=== PATIENT | female | born 1965 | race Two or more races ===

== ENCOUNTER 2020-05-02 21:16 | Inpatient (IN) | payer BC ==
[~2020-05-02] VITALS: Ht 167.6 cm; Wt 85.3 kg
--- NOTE | 2020-05-02 21:30 | NUR ---
PT BIBFAMILY C/O SOB AND COUGH X 2 MONTHS. PT SATTING 90% ON RA. PT PLACED ON 3 LPM VIA N/C. PT HAS AN APPT W/ [employer] NEXT WEEK. PT AAOX4,NO ACUTE DISTRESS NOTED. 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
--- NOTE | 2020-05-02 21:51 | NUR ---
BLOOD COLLECTED AND SENT TO LAB
[2020-05-02 22:19] LABS: BASOPHILS % (AUTO) 0.4 % (0.0-2.0); EOSINOPHILS % (AUTO) 6.4 % (0.0-6.0); HEMATOCRIT 45 % (33-45); HEMOGLOBIN 15.4 g/dL (11.5-14.8); LYMPHOCYTES # (AUTO) 4.7 /CMM (0.8-4.8); LYMPHOCYTES % (AUTO) 44.2 % (20.0-44.0); MEAN CORPUSCULAR HGB CONC 34 g/dl (31.0-36.0); MEAN CORPUSCULAR VOLUME 89 fL (82-100); MONOCYTES # (AUTO) 0.8 /CMM (0.1-1.30); MONOCYTES % (AUTO) 7.5 % (2.0-12.0); NEUTROPHILS # (AUTO) 4.4 /CMM (1.8-8.9); NEUTROPHILS % (AUTO) 41.5 % (43.0-81.0); PLATELET COUNT (AUTO) 288 /CMM (150-450); RED BLOOD CELL COUNT(AUTO) 5.03 MIL/uL (4.0-5.2); WHITE BLOOD COUNT (AUTO) 10.6 K/uL (4.3-11.0)
[2020-05-02 22:29] LABS: CARBON DIOXIDE 27 mmol/L (21-32); CHLORIDE 102 mmol/L (98-107); CREATININE 0.7 mg/dL (0.6-1.3); GLUCOSE 136 mg/dL (74-106); POTASSIUM 3.7 mmol/L (3.5-5.1); SODIUM SERUM 140 mmol/L (136-145); UREA NITROGEN, BLOOD 22 mg/dL (7-18)
[2020-05-02] MEDS ORDERED: methylPREDNISolone SOD SUCC 125 MG/2ML VIAL ONE (22:29)
[2020-05-02] MEDS ORDERED: Magnesium 1GM/D5W 100ML PREMIX 200 ML IV ONE ×2 (22:29→22:30)
[2020-05-02] MEDS ORDERED: TERBUTALINE SULFATE 1 MG/ML VIAL ONE (22:29)
[2020-05-02] MEDS ORDERED: IPRATROPIUM NEB FS 0.5 MG/2.5 ML AMPUL.NEB NEB ONE (22:30)
[2020-05-02] MEDS ORDERED: methylPREDNISolone SOD SUCC 125 MG/2ML VIAL IV ONE (22:30)
[2020-05-02] MEDS ORDERED: ALBUTEROL FS 2.5 MG/3 ML VIAL.NEB CONTNEB ONE (22:30)
[2020-05-02] MEDS ORDERED: TERBUTALINE SULFATE 1 MG/ML VIAL SQ ONE (22:30)
[2020-05-02] MEDS ORDERED: IPRATROPIUM NEB FS 0.5 MG/2.5 ML AMPUL.NEB ONE ×2 (22:34→23:42)
[2020-05-02] MEDS ORDERED: ALBUTEROL FS 2.5 MG/3 ML VIAL.NEB ONE ×2 (22:34→23:42)
[2020-05-02 22:46] LABS: ALANINE AMINOTRANSFERASE 37 U/L (12-78); ALBUMIN 4.7 g/dL (3.4-5.0); ALKALINE PHOSPHATASE 62 U/L (46-116); ASPARTATE AMINOTRANSFERASE 19 U/L (15-37); B-TYPE NATRIURETIC PEPTIDE 53 PG/ML (0-125); BILIRUBIN,DIRECT 0.1 mg/dL (0.0-0.2); BILIRUBIN,TOTAL 0.3 mg/dL (0.2-1.0); TOTAL PROTEIN, SERUM 8.7 g/dL (6.4-8.2)
[2020-05-02 22:48] LABS: ABG BASE EXCESS 0.4 mmol/L; ABG PCO2 52.1 mmHg (35.0-45.0); ABG PH 7.335 (7.350-7.450); AaDO2 74.2 mmHg; COHb 0.2 % (0.5-1.5); MetHb 0.3 % (0.0-1.5); O2Hb 95.5 % (94.0-97.0); SITE, ABG Left Brachial; VENT MODE, BG 3L NC
[2020-05-03] MEDS ORDERED: ALBUTEROL FS 2.5 MG/3 ML VIAL.NEB CONTNEB ONE
[2020-05-03] MEDS ORDERED: MAGNESIUM HYDROXIDE 30 ML UDC PO PRN
[2020-05-03] MEDS ORDERED: MAG HYDROX/AL HYDROX/SIMETH 30 ML UDC PO PRN
[2020-05-03] MEDS ORDERED: IPRATROPIUM NEB FS 0.5 MG/2.5 ML AMPUL.NEB NEB ONE
[2020-05-03] MEDS ORDERED: Z GUARD REMEDY 2 OZ OINT TP PRN
[2020-05-03] MEDS ORDERED: HYDROCODONE/APAP 5/325MG TABLET PO PRN
[2020-05-03] MEDS ORDERED: ZOLPIDEM TARTRATE 5 MG TABLET PO PRN
[2020-05-03] MEDS ORDERED: AZITHROMYCIN 500 MG in IV D5W 250 ML IV ONE ×2
[2020-05-03] MEDS ORDERED: ONDANSETRON HCL/PF 4 MG/2 ML VIAL IVP PRN
--- NOTE | 2020-05-03 00:12 | NUR ---
REPORT GIVEN TO LILIANE BLANCA FOR PREMA
--- NOTE | 2020-05-03 00:37 | NUR ---
PT TRANSFERRED TO ROOM PER [employer]S PROTOCOL
[2020-05-03 00:40] VITALS: BP 122/61
--- NOTE | 2020-05-03 00:40 | NUR ---
MS RN NOTES PATIENT ARRIVED ON FLOOR AT 0040. PATIENT IS ALERT AND ORIENTED X 4. BREATHING EVEN AND UNLABORED ON 4L NC. SHOWS NO SIGNS OF ACUTE RESPIRATORY DISTRESS, NO ACUTE PAIN. IV ON RAC 18G, ITS CLEAN DRY AND INTACT. FLUSHING WELL. BELONGINGS CHECKLIST COMPLETED. SKIN ASSESSMENT COMPLETED. ORIENTED TO ROOM AND STAFF. SAFETY PRECAUTIONS IN PLACE. BED IN LOWEST POSITION, LOCKED, AND CALL LIGHT KEPT WITHIN REACH. WILL CONTINUE TO MONITOR.
[2020-05-03] MEDS ORDERED: OLME1TAB40 PO (02:50)
--- NOTE | 2020-05-03 06:46 | NUR ---
MS RN NOTES PATIENT IS IN BED, ASLEEP, ALERT AND ORIENTED X 4. BREATHING EVEN AND UNLABORED ON 4L NC. SHOWS NO SIGNS OF ACUTE RESPIRATORY DISTRESS, NO ACUTE PAIN. IV ON RAC 18G, ITS CLEAN DRY AND INTACT. FLUSHING WELL.ALL DUE MEDICATIONS GIVEN. SAFETY PRECAUTIONS IN PLACE. BED IN LOWEST POSITION, LOCKED, AND CALL LIGHT KEPT WITHIN REACH. WILL ENDORSE TO ONCOMING NURSE.
[2020-05-03 07:31] LABS: BASOPHILS % (AUTO) 0.2 % (0.0-2.0); EOSINOPHILS % (AUTO) 0.2 % (0.0-6.0); HEMATOCRIT 39 % (33-45); HEMOGLOBIN 13.2 g/dL (11.5-14.8); LYMPHOCYTES # (AUTO) 0.8 /CMM (0.8-4.8); MEAN CORPUSCULAR HGB CONC 34 g/dl (31.0-36.0); MEAN CORPUSCULAR VOLUME 88 fL (82-100); MONOCYTES # (AUTO) 0.1 /CMM (0.1-1.30); MONOCYTES % (AUTO) 1.7 % (2.0-12.0); NEUTROPHILS # (AUTO) 7.6 /CMM (1.8-8.9); NEUTROPHILS % (AUTO) 88.9 % (43.0-81.0); PLATELET COUNT (AUTO) 245 /CMM (150-450); RED BLOOD CELL COUNT(AUTO) 4.45 MIL/uL (4.0-5.2); WHITE BLOOD COUNT (AUTO) 8.6 K/uL (4.3-11.0)
[2020-05-03 07:41] LABS: CALCIUM, SERUM 9.4 mg/dL (8.5-10.1); CREATININE 1.3 mg/dL (0.6-1.3); MAGNESIUM 2.7 mg/dL (1.8-2.4); PHOSPHORUS 1.9 mg/dL (2.5-4.9); POTASSIUM 3.5 mmol/L (3.5-5.1)
[2020-05-03] MEDS: ALBUTEROL FS 2.5 MG/3 ML VIAL.NEB NEB SCH ×5 (07:52→23:48)
[2020-05-03] MEDS: IPRATROPIUM NEB FS 0.5 MG/2.5 ML AMPUL.NEB NEB SCH ×5 (07:52→23:48)
--- NOTE | 2020-05-03 08:20 | NUR ---
MS RN NOTES RECEIVED PATIENT IN BED , HEAD OF BED ELEVATED , ALERT ORIENTED X 4. NO ACUTE DISTRESS NOTED. BREATHING UNLABORED. NO SOB NOTED. IV ACCESS PATENT AND INTACT, NO REDNESS NO SWELLING , NO BLEEDING NOTED. SAFETY MEASURES IN PLACE. CALL LIGHT WITHIN REACH. WILL CONTINUE TO MONITOR ACCORDINGLY.
--- NOTE | 2020-05-03 08:22 | NUR ---
MS RN NOTES PATIENT IS IN BED, AWAKE ALERT AND ORIENTED X 4. BREATHING EVEN AND UNLABORED ON 3L NC. SHOWS NO SIGNS OF ACUTE RESPIRATORY DISTRESS, NO ACUTE PAIN. IV ON RAC 18G, ITS CLEAN DRY AND INTACT. SAFETY PRECAUTIONS IN PLACE WITH BED IN LOWEST POSITION, LOCKED, AND CALL LIGHT KEPT WITHIN REACH. ENDORSE PLAN OF CARE TO MORNING SHIFT RN.
[2020-05-03] MEDS ORDERED: ICOS1CAP PO (08:40)
[2020-05-03] MEDS ORDERED: CHOL100040 PO (08:40)
[2020-05-03] MEDS ORDERED: methylPREDNISolone SOD SUCC 40 MG/ML VIAL IV SCH (09:00)
--- NOTE | 2020-05-03 10:00 | NUR ---
MS RN NOTES NOTIFIED DR ADRYAN RAMOS REGARDING MEDICATION RECONCILIATION NEEDS TO BE DONE.
[2020-05-03] MEDS ORDERED: K PHOS NEUTRAL 250 MG TABLET PO ONE (11:30)
[2020-05-03 16:18] VITALS: BP 105/55
[2020-05-03] MEDS: ACETAMINOPHEN 325 MG TABLET PO PRN (17:15)
--- NOTE | 2020-05-03 19:00 | NUR ---
MS RN NOTES PATIENT IN BED , HEAD OF BED ELEVATED , ALERT ORIENTED X 4. NO ACUTE DISTRESS NOTED. BREATHING UNLABORED. NO SOB NOTED. IV ACCESS PATENT AND INTACT, NO REDNESS NO SWELLING , NO BLEEDING NOTED. NEEDS ATTENDED AND ANTICIPATED. SAFETY MEASURES IN PLACE. CALL LIGHT WITHIN REACH. WILL ENDORSE TO NIGHT NURSE FOR CONTINUITY OF CARE.
--- NOTE | 2020-05-03 19:30 | NUR ---
MS/RN OPENING NOTES RECEIVED PATIENT IN BED , HEAD OF BED ELEVATED , ALERT ORIENTED X 4. NO ACUTE DISTRESS NOTED. BREATHING UNLABORED, NO SIGNS OF SOB OR RESPIRTAORY DISTRESS NOTED. IV ACCESS PATENT AND INTACT, NO REDNESS NO SWELLING SL LOCK. SAFETY MEASURES ARE IN PLACE, BED IS LOCKED AND PLACED IN THE LOW POSITION, SIDE RAILS UP X 2, CALL LIGHT WITHIN REACH. WILL MONITOR THROUGH OUT SHIFT.
[2020-05-03 20:00] VITALS: BP 104/57
--- NOTE | 2020-05-03 21:45 | NUR ---
MS/RN NOTES GAVE REPORT TO LILIANE LERMA FOR PREMA. PATIENT IS STABLE IN NO DISTRESS.
[2020-05-03 21:58] LABS: BILIRUBIN,URINE NEGATIVE (NEGATIVE); BLOOD, URINE NEGATIVE Ery/uL (NEGATIVE); COLOR,URINE YELLOW (YELLOW); LEUKOCYTE ESTERASE ,URINE NEGATIVE (NEGATIVE); NITRITE, URINE NEGATIVE (NEGATIVE); PROTEIN,URINE NEGATIVE (NEGATIVE); UGLUCOSE NEGATIVE (NEGATIVE); UROBILINOGEN,URINE 0.2 EU/dL (0.2)
[2020-05-03 22:02] LABS: EOSINOPHIL,URINE None Seen
--- NOTE | 2020-05-03 22:10 | NUR ---
MS RN NOTE PATIENT IS ASLEEP AT THIS TIME. NO SOB, NO ACUTE DISTRESS NOTED. A & O X 4, ABLE TO MAKE NEEDS KNOWN. WILL CONTINUE TO MONITOR FOR PREMA.
[2020-05-03 22:13] LABS: CREATININE, URINE 65.7 MG/DL (30.0-125.0); URINE TOTAL PROTEIN 3.1 mg/dL (0-11.9)
[2020-05-04] MEDS: ALBUTEROL FS 2.5 MG/3 ML VIAL.NEB NEB SCH ×3 (04:18→11:12)
[2020-05-04] MEDS: IPRATROPIUM NEB FS 0.5 MG/2.5 ML AMPUL.NEB NEB SCH ×3 (04:18→11:12)
[2020-05-04] MEDS: ACETAMINOPHEN 325 MG TABLET PO PRN (05:07)
--- NOTE | 2020-05-04 05:08 | NUR ---
MS RN NOTE: TYLENOL GIVEN PATIENT C/O HEADACHE & REQUESTED TO TAKE TYLENOL. PRN TYLENOL 650 MG PO ADMINISTERED. WILL CONTINUE TO MONITOR.
--- NOTE | 2020-05-04 06:56 | NUR ---
MS/RN CLOSING NOTES PATIENT SLEPT WELL AT NIGHT, HEAD OF BED ELEVATED, ALERT ORIENTED X 4. NO ACUTE DISTRESS NOTED. BREATHING UNLABORED, NO SIGNS OF SOB OR RESPIRATORY DISTRESS NOTED. IV ACCESS PATENT AND INTACT, NO REDNESS NO SWELLING SALINE LOCK. BREATHING TX WAS ADMINISTERED BY RT ORDERED BY MD. ON O2 @ 4 LPM VIA NC. SAFETY MEASURES ARE IN PLACE, BED IS LOCKED AND PLACED IN THE LOW POSITION, SIDE RAILS UP X 2, CALL LIGHT WITHIN REACH. WILL ENDORSE TO AM RN FOR PREMA.
[2020-05-04 08:00] VITALS: BP 118/70
[2020-05-04] MEDS ORDERED: methylPREDNISolone SOD SUCC 125 MG/2ML VIAL IV SCH (09:00)
[2020-05-04] MEDS ORDERED: AZITHROMYCIN 250 MG TABLET PO SCH (09:00)
[2020-05-04] MEDS ORDERED: PRED20TA PO (11:34)
[2020-05-04] MEDS ORDERED: FLUT1DIS INH (11:35)
[2020-05-04 11:53] LABS: BASOPHILS # (AUTO) 0.1 /CMM (0.0-0.2); BASOPHILS % (AUTO) 0.5 % (0.0-2.0); HEMATOCRIT 38 % (33-45); HEMOGLOBIN 12.7 g/dL (11.5-14.8); LYMPHOCYTES # (AUTO) 1.8 /CMM (0.8-4.8); LYMPHOCYTES % (AUTO) 12.7 % (20.0-44.0); MEAN CORPUSCULAR HGB CONC 33 g/dl (31.0-36.0); MEAN CORPUSCULAR VOLUME 89 fL (82-100); MONOCYTES # (AUTO) 0.8 /CMM (0.1-1.30); MONOCYTES % (AUTO) 5.7 % (2.0-12.0); NEUTROPHILS # (AUTO) 11.7 /CMM (1.8-8.9); NEUTROPHILS % (AUTO) 81.1 % (43.0-81.0); PLATELET COUNT (AUTO) 250 /CMM (150-450); WHITE BLOOD COUNT (AUTO) 14.5 K/uL (4.3-11.0)
[2020-05-04] MEDS ORDERED: ASPIRIN 81 MG TAB.CHEW PO SCH (12:00)
[2020-05-04] MEDS ORDERED: ATORVASTATIN 10 MG TABLET PO SCH (12:00)
[2020-05-04 12:07] LABS: ALBUMIN 3.8 g/dL (3.4-5.0); BILIRUBIN,TOTAL 0.2 mg/dL (0.2-1.0); CALCIUM, SERUM 9.1 mg/dL (8.5-10.1); CREATININE 0.9 mg/dL (0.6-1.3); MAGNESIUM 2.5 mg/dL (1.8-2.4); POTASSIUM 3.9 mmol/L (3.5-5.1); TOTAL PROTEIN, SERUM 7.1 g/dL (6.4-8.2)
[2020-05-04 12:54] LABS: THYROID STIMULATING HORMONE 0.895 uIU/mL (0.358-3.74)
--- NOTE | 2020-05-04 15:05 | NUR ---
Patient cleared for d/c home by MD. Patient is awake alert and oriented x4. Breathing unlabored and even on room air with saturation 93%. VS are stable and within baseline, afebrile . Patient was able to walk with no oxygen on. No breathing difficulty was noted. Patient denies SOB or other discomfort. Patient educated on new prescribed medication, side effects and benefits. Patient verbalized understanding instructions given. Patient will follow up with PCP in one week. IV line removed , wrist band removed. Patient sighed valuable form and all belongings with the patient. PAtient safely transferred to [facility] where picked up by .
== END 2020-05-04 15:05 | disposition home or self-care (01) | DRG 191 ==
LOC: ER 21:18 → TELE 05-03 00:02 → MED 05-03 01:55
PROVIDERS: ADMIT Family Medicine
DX: J44.1 Chronic obstructive pulmonary disease with (acute) exacerbation (principal); N17.9 Acute kidney failure, unspecified; I10 Essential (primary) hypertension; R73.9 Hyperglycemia, unspecified; Z88.0 Allergy status to penicillin; Z82.49 Family history of ischemic heart disease and other diseases of the circulatory system; Z90.710 Acquired absence of both cervix and uterus; E66.9 Obesity, unspecified; Z68.30 Body mass index [BMI] 30.0-30.9, adult; T38.0X5A Adverse effect of glucocorticoids and synthetic analogues, initial encounter; Y92.9 Unspecified place or not applicable
CPT/HCPCS: 36415; 36600; 71045-TC; 80048-TC; 80053-TC; 80061-TC; 80076-TC; 81001; 82570-TC; 82803-TC; 83735-TC; 83880; 84100-TC; 84155-TC; 84300-TC; 84439-TC; 84443-TC; 84484-TC; 85025-TC; 85378-TC; 87081-TC; 94799-TC; G0378; J0456; J2920; J2930; J3105; J3475; J7050; J7060